=== PATIENT | female | born 1995 | race African-American/Black ===

== ENCOUNTER 2020-01-11 20:16 | Emergency (ER) | payer OTHER ==
--- NOTE | 2020-01-11 20:29 | PDOC ---
History of Present Illness - General History Source: Patient Exam Limitations: No Limitations - History of Present Illness Initial Comments: 01/11/20 20:28 24 year old female with no pmhx with 3 days of loss of taste and smell. Pt is also complaining of a productive cough with yellow sputum. 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 pt lives with boyfriend and daughter, states no one has similar symptoms at home. Pt lives in [place] and is in [facility]. Pt otherwise denies: fevers, chills, syncope, lightheadedness, dizziness, headaches, neck pain, chest pain, shortness of breath, palpitations, back pain, abdominal pain, nausea, vomiting, diarrhea, constipation. <Jose Delvalle - Last Filed: 01/11/20 20:50> <Andie Morales - Last Filed: 01/11/20 21:01> - General Stated Complaint: COVID/EVAL/NO TASTE/SMELL Time Seen by Provider: 01/11/20 20:20 Past History <Jose Delvalle - Last Filed: 01/11/20 20:50> <Andie Morales - Last Filed: 01/11/20 21:01> - Medical History Allergies/Adverse Reactions: Allergies Allergy/AdvReac Type Severity Reaction Status Date / Time No Known Allergies Allergy Verified 01/11/20 20:30 *Physical Exam - Physical Exam 01/11/20 20:30 Gen: AAOx 3, no acute distress, comfortable, no signs of respiratory distress HENT: atraumatic, normocephalic with no laceration or contusion. Nasal mucosa without erythema. Oropharynx without erythema or exudates. Mucous membranes moist. EYES: PERRL, EOM intact, conjunctiva pink NECK: supple; trachea midline; no JVD, no lymphadenopathy, or thyromegaly CV: RRR no murmurs, gallops, or rubs. CHEST: CTA b/l no wheezing, rales or rhonchi ABD: +BS/ND. no TTP; soft, no rebound, no guarding EXTREMITY: no cyanosis or erythema. 2+ dorsalis pedis, posterior tibial, and radial pulse. No pedal edema; no calf swelling or tenderness SKIN: no rash, warm and dry, no diaphoresis HEME: no purpura or ecchymosis NEURO: normal speech, CN II-XII intact, sensation intact, normal gait, no cerebellar deficits MS: 5/5 strength in all extremities, FROM intact in all extremities. <Jose Delvalle - Last Filed: 01/11/20 20:50> - Vital Signs Last Vital Signs Temp Pulse Resp BP Pulse Ox 98.3 F 86 20 113/71 99 01/11/20 20:27 01/11/20 20:27 01/11/20 20:27 01/11/20 20:27 01/11/20 20:27 <Andie Morales - Last Filed: 01/11/20 21:01> ED Treatment Course - RADIOLOGY Radiology Studies Ordered: Category Date Time Status CHEST PA & LAT [RAD] Stat Radiology 01/11/20 20:27 Ordered <Jose Delvalle - Last Filed: 01/11/20 20:50> Medical Decision Making - Medical Decision Making 01/11/20 20:31 24 year old female COVID like symptoms VSS Plan: XR COVID swab Supportive care Isolation guidelines Chest XR negative Pt advised to quarantine until results given. Pt will be called promptly when results received Pt educated on worsening signs and symptoms and reasons to return to ED Strict return precautions given Pt appears well and is safe and stable for discharge with close follow up. Supportive care instructions explained and given to pt. Reasons to return emergently to ER explained and given. Importance of follow up with PMD and other specialists as indicated stressed to pt. Pt verbalized understanding of instructions. Pt to follow up with PMD in 2 days. <Jose Delvalle - Last Filed: 01/11/20 20:50> - Medical Decision Making The patient was seen and evaluated in conjunction with midlevel provider under my direct supervision, ancillary studies were reviewed. I agree with the plan as outlined with ALEISHA Delvalle. HPI, workup/dispo as outlined. VS reviewed, wnl. Chest x-ray appears clear, no evidence of pneumonia or effusion, trachea is midline, no pneumothorax, effusion or infiltrate Given her symptoms and the current pandemic situation, COVID-19 testing is pending, isolation and droplet precautions, quarantine until results and monitor her symptoms closely. Anticipate discharge, pcp followup, return precautions 01/11/20 21:01 <Andie Morales - Last Filed: 01/11/20 21:01> Discharge - Discharge Information Problems reviewed: Yes - Admission No <Jose Delvalle - Last Filed: 01/11/20 20:50> <Andie Morales - Last Filed: 01/11/20 21:01> - Discharge Information Clinical Impression/Diagnosis: COVID-19 Condition: Stable Disposition: HOME - Patient Discharge Instructions Patient Printed Discharge Instructions: [facility]-Coronavirus Instructions - Post Discharge Activity Work/Back to School Note: Back to Work
[2020-01-11 20:44] VITALS: BP 113/71; PULSE 86; TEMP 98.3; BMI 29.5
== END 2020-01-11 21:02 | disposition home or self-care (01) ==
LOC: JER 20:16
DX: R05 Cough (principal); U07.1 COVID-19
CPT/HCPCS: 71046-TC-FY; 99283-25; U0003